=== PATIENT | female | born 1975 | race Caucasian/White ===

== ENCOUNTER 2019-01-14 13:53 | Emergency (ER) | payer BC, OTHER ==
--- NOTE | 2019-01-14 14:11 | UC ---
Laceration HPI - HPI Summary HPI Summary: 43 yo female presents with right hand laceration. She tells me that just [employer]CH[employer]OLOG[employer] she was slicing food with a mandolin and slipped - sustained a laceration to the right thenar eminence. Bandaged the area and came to . Unsure date of last tetanus. Pt is right handed - History Of Current Complaint Stated Complaint: HAND LAC Time Seen by Provider: 01/14/19 14:11 Hx Obtained From: Patient Laceration Location: Hand Mechanism Of Injury: Sharp Trauma Onset/Duration: Sudden Onset Severity: Severe Pain Intensity: 8 Pain Scale Used: 0-10 Numeric - Allergies/Home Medications Allergies/Adverse Reactions: Allergies Allergy/AdvReac Type Severity Reaction Status Date / Time No Known Allergies Allergy Verified 01/14/19 14:14 Home Medications: Home Medications NK [No Home Medications Reported] 01/14/19 [History Confirmed 01/14/19] PMH/Surg Hx/FS Hx/Imm Hx - Additional Past Medical History Additional PMH: None - Surgical History Surgical History: None - Family History Known Family History: Positive: Non-Contributory - Social History Occupation: Employed Full-time Lives: With Family Alcohol Use: Occasionally Substance Use Type: None Smoking Status (MU): Light Every Day Tobacco Smoker Type: Cigarettes Review of Systems All Other Systems Reviewed And Are Negative: No Constitutional: Positive: Negative Skin: Positive: Other - Right hand laceration Respiratory: Positive: Negative Cardiovascular: Positive: Negative Musculoskeletal: Positive: Negative Neurological: Positive: Negative Psychological: Positive: Negative Physical Exam - Summary Physical Exam Summary: GENERAL: NAD. WDWN. No pain distress. SKIN: RIGHT HAND: Thenar eminence with 4.0cm flap-like laceration partial thickness. Scant active bleeding. Clean appearing. No tendon involvement. CHEST: No accessory muscle use. Breathing comfortably and in no distress. CV: Pulses intact. Cap refill <2seconds MSK: FROM right thumb and all digits. NEURO: Alert. PSYCH: Age appropriate behavior. Triage Information Reviewed: Yes Vital Signs: Vital Signs: Temp Pulse Resp BP Pulse Ox 97.8 F 81 16 130/78 100 01/14/19 14:01/14/19 14:01/14/19 14:01/14/19 14:01/14/19 14:09 Vital Signs Reviewed: Yes Laceration Repair - Laceration Repair 1 Description: Irregular Laceration Size After Repair: Length (cm) - 4.0 Type Injection: Local Anesthesia Used: 2.0% Lido Irrigation With Pressure Irrigation Device: Yes Closure Material: Sutures - #8 Closure Method: Single Layer Suture Of: Skin Suture Type: Prolene - 5-0 Laceration Course/Dx - Course/Dx Course Of Treatment: The procedure was explained to the pt and all questions were answered. A time out was performed, witnessed, and signed. The area was irrigated with 200mL sterile saline. 3mL of 2% lidocaine without epi was administered and good anesthetization was achieved. In the usual sterile fashion, EIGHT 5-0 prolene interrupted sutures were placed. Homeostasis achieved. The wound was bandaged with telfa . Pt tolerated procedure well. tdap updated today - Diagnosis Provider Diagnosis: Hand laceration Discharge ED - Sign-Out/Discharge Documenting (check all that apply): Patient Departure All imaging exams completed and their final reports reviewed: No Studies - Discharge Plan Condition: Stable Disposition: HOME Patient Education Materials: Care For Your Stitches (DC), Laceration (ED) Referrals: Yane Boyle NP [Primary Care Provider] - Additional Instructions: If you develop a fever, shortness of breath, chest pain, new or worsening symptoms - please call your PCP or go to the ED immediately. 1) Please keep the area bandage, clean, dry, and intact for the next 48hours. Then change the bandage daily until sutures are removed. 2) If you develop a fever, colored or thick discharge, increased pain or swelling - please call your PCP or return for a wound check. 3) Please return in 9-10 days to have your EIGHT sutures removed. - Billing Disposition and Condition Condition: STABLE Disposition: Home
[2019-01-14 14:14] VITALS: BP 130/78
[2019-01-14] MEDS ORDERED: Tetan/Diph/Pertus SYR(Tdap)* 0.5 ML SYR(BOOSTRIX) use SYR IM ONE (14:14)
[2019-01-14] MEDS ORDERED: Lidocaine 2% PF * 5 ML VIAL INJ ONE (14:28)
== END 2019-01-14 15:24 | disposition home or self-care (01) ==
LOC: UCEAST 13:53
DX: S61.411A Laceration without foreign body of right hand, initial encounter (principal); W27.4XXA Contact with kitchen utensil, initial encounter; Y93.G1 Activity, food preparation and clean up; Y92.9 Unspecified place or not applicable; Y99.0 Civilian activity done for income or pay; Z23 Encounter for immunization; F17.210 Nicotine dependence, cigarettes, uncomplicated
CPT/HCPCS: 12002; 90471; 90715; 99201; G0463